=== PATIENT | male | born 1985 | race Caucasian/White ===

== ENCOUNTER → 2021-02-06 16:46 | Outpatient (CLI) | payer OTHER, SELFPAY | PROVIDERS: Visit Provider Nurse Practitioner Family | DX: Z20.822 Contact with and (suspected) exposure to COVID-19 (principal) | CPT/HCPCS: C9803; U0003; U0005 ==

== ENCOUNTER 2024-10-17 22:02 | Emergency (ER) | payer OTHER, SELFPAY ==
[2024-10-17 22:11] VITALS: BP 141/95; PULSE 102; RESP 16; TEMP 36.9; O2SAT 97; BMI 29.0
--- NOTE | 2024-10-17 22:17 | XR_ITS ---
PROCEDURE INFORMATION: Exam: XR Left Elbow Exam date and time: 10/17/2024 10:25 PM Age: 39 years old Clinical indication: Pain; Elbow; Left; Additional info: Olecranon swelling TECHNIQUE: Imaging protocol: Radiologic exam of the left elbow. Views: 3 or more views. COMPARISON: No relevant prior studies available. FINDINGS: Bones/joints: No acute fracture or dislocation. Soft tissues: Soft tissue swelling posteriorly. IMPRESSION: Soft tissue swelling posterior elbow but no underlying acute fracture
[2024-10-17] MEDS: KETOROLAC 30MG/ML VIAL 30 MG IV (22:38)
[2024-10-17 22:52] LABS: Hematocrit 41.0 % (42.0-52.0); Hemoglobin 14.3 g/dL (14.1-18.0); Mean Corpuscular HGB Conc 34.9 g/dL (31.8-35.4); Mean Corpuscular Hemoglobin 30.2 pg (27.0-31.2); Mean Corpuscular Volume 86.5 fl (80-94); Platelet Count 295 K/mm3 (142-424); Red Blood Count 4.74 M/mm3 (4.60-6.20); White Blood Count 11.6 K/mm3 (4.8-10.8)
[2024-10-17 23:02] LABS: Alanine Aminotransferase 22 U/L (12-78); Albumin Level 3.9 g/dl (3.5-5.0); Albumin/Globulin Ratio 0.9 (1.1-1.8); Alkaline Phosphatase 85 U/L (38-126); Anion Gap 12.9 mEq/L (5-15); Aspartate Amino Transferase 27 U/L (17-59); Bilirubin,Total 0.7 mg/dl (0.2-1.3); Blood Urea Nitrogen 12 mg/dl (9-20); Calcium 9.4 mg/dl (8.4-10.2); Carbon Dioxide 26 mmol/L (22.0-30.0); Chloride 102 mmol/L (98-107); Creatinine Clearance Estimated 170 mL/min (50-200); Creatinine,Serum 0.90 mg/dl (0.66-1.25); Estimated Glomerular Filt Rate 93 ml/min (>60); GFR (African American) 113 ML/MIN (>60); Globulin 4.2 g/dL (1.3-3.2); Glucose 145 mg/dl (74-100); Potassium 3.9 mmoL/L (3.5-5.1); Sodium 137 mmol/L (136-145); Total Protein,Serum 8.1 g/dl (6.3-8.2)
[2024-10-17 23:07] LABS: C-Reactive Protein 40.3 mg/L (0-4)
[2024-10-17 23:30] LABS: Poikilocytosis 1+; Tear Drop Cells 1+; Total Cells Counted 100
[2024-10-17 23:32] LABS: Giant Platelets 1+; Polychromasia 1+
[2024-10-18 00:17] LABS: Hepatitis C Ab Qual. W/ RFX REACTIVE (Negative)
--- NOTE | 2024-10-18 00:20 | HMH.EDGENADL ---
Discharge Plan Disposition Patient Disposition: Home, Self-Care Condition: Good Prescriptions Prescriptions: New sulfamethoxazole-trimethoprim [Bactrim] 400-80 mg tablet 2 tab PO BID 7 Days Qty: 28 0RF No Action prednisone 10 MG tablets,dose pack 10 mg PO UD DOSE PK Qty: 42 0RF Rx Instructions: 12 day taper pack azithromycin 250 MG tablet 250 mg PO DIRECTED Qty: 6 0RF Rx Instructions: Take two (2) tablets on day #1, then one (1) tablet day #2 thru #5 Referrals Follow up/Referrals: Nicholas García DO [Staff Physician, Orthopedics] - See instructions Provider,Referral, [Primary Care Provider, Medical] - See instructions Activity Restrictions/Add. Instructions Additional Instructions/Restrictions: I want you to call Dr. García in the morning to schedule a follow up with orthopedics. In the meantime, I want you to take bactrim twice per day for the next 7 days to protect from infection. If you develop any new or worsening symptoms, including persistent fevers, overlying redness, drainage of pus, or difficulty with range of motion of the elbow please promprly return to the ER for further evaluation. Clinical Impressions Clinical Impression: Bursitis, olecranon Qualifiers: Laterality: left Qualified Code(s): M70.22 - Olecranon bursitis, left elbow Instructions Patient Instructions: Bursitis Print Language Print Language: Iranian Discharge ED Provider: Pilo Johnston Adult HPI General Chief complaint: Extremity Injury, Upper Stated complaint: Left elbow swelling Time Seen by Provider: 10/17/24 22:10 Mode of Arrival: Ambulatory Source of Information: Patient Description of Symptoms (Recalled from ER Triage Doc. by RN): Patient has swelling in left elbow that started around one month ago; History of Present Illness HPI narrative: This is a 39-year-old male patient, with past medical history of methamphetamine abuse and prior IV drug use, who is presenting to the emergency department today for evaluation of edema of the left elbow. Patient states that he has developed the symptoms over the last couple of weeks. Earlier this week he used a sterilized needle to puncture the area of swelling over the posterior aspect of the elbow. He states that his symptoms resolved for a few days and then recurred. At that time he had serous colored fluid drained from the bursa posterior to the olecranon. After recurrence he used a needle to again puncture this lesion and he had some bloody output from the bursa. He has not had any difficulty with range of motion of the elbow or. He has not noticed any overlying skin changes. He does state that 3 days ago he had a fever of 102 ?F but he has not had a recurrence of fever since that time Related Data Previous Rx's ?Medication ?Instructions ?Recorded prednisone 10 mg tablets in a dose 10 mg PO UD DOSE PK ##42 10/26/17 pack azithromycin 250 mg tablet 250 mg PO DIRECTED #6 tabs 11/10/18 sulfamethoxazole 400 2 tab PO BID 7 days #28 tabs 10/18/24 mg-trimethoprim 80 mg tablet (Bactrim) Allergies Allergy/AdvReac Type Severity Reaction Status Date / Time No Known Allergies Allergy Verified 10/26/17 14:45 [facility] Disclaimer: The information contained in this section may have been updated after the patient was seen, as this information can be updated by other users. Social History Smoking Status: Current every day smoker alcohol intake: never current occupational status: employed Travel in the last 8 weeks?: None Have you lived/traveled outside [place] in past 30 days?: No Contact w/someone who lives/traveled outside [place] past 30 days?: No Exposure to someone with infectious disease in past 14 days?: No Do you have a fever (greater than 100.4 F or 38 C)?: No Have you tested positive for COVID-19?: No Exposed to someone with COVID-19 in past 14 days?: No Do you have a sore throat?: No Do you have a cough?: No Do you have any weakness?: No Do you have any diarrhea?: No Are you experiencing any unusual bleeding?: No Do you have any muscle aches/pain?: No Do you have any abdominal pain?: No Are you experiencing loss of taste or smell?: No ROS Obtained: Yes Systems reviewed as appropriate & no additional complaints except as documented Physical Exam General General appearance: alert and in no apparent distress Head Head exam: atraumatic and normocephalic Eye Eye exam: Present PERRL and EOMI ENT ENT exam: Present normal oropharynx and mucous membranes moist Neck Neck exam: Present full ROM and trachea midline Respiratory Respiratory exam: Present normal lung sounds bilaterally; Absent respiratory distress Cardiovascular Cardiovascular exam: Present regular rate and normal rhythm Abdominal Exam Abdominal exam: Present soft; Absent tenderness Extremities Exam Extremities exam: Present normal inspection and other (Enlarged olecranon bursa over the left elbow with no overlying skin changes); Absent tenderness Back Exam Back exam: Absent vertebral tenderness Neurological Exam Neurological exam: Present alert and oriented X3 Skin Skin exam: Present warm and dry Medical Decision Making Medical Records Medical records reviewed: Yes I reviewed the patient's medical records. Screening: Per USPSTF and CDC recommendations, given the prevalence of disease in our region, it is our hospital?s policy to screen for HIV and viral Hepatitis for all patients aged 18 and over and those with ongoing risk factors. Sergio Inquiry Pt receiving controlled substance: No Sergio was queried for this patient: No Vital Signs: 10/17/24 22:11 10/18/24 00:36 Temperature 98.4 F 97.9 F Temperature Source Oral Oral Pulse Rate 89 Pulse Rate [Right Radial] 102 H Respiratory Rate 16 16 Blood Pressure 133/83 Blood Pressure [Right Arm] 141/95 H Blood Pressure Mean [Right Arm] 110 Blood Pressure Source Automatic Cuff Blood Pressure Source [Right Arm] Automatic Cuff Blood Pressure Position Supine Blood Pressure Position [Right Arm] Supine 02 Sat by Pulse Oximetry 97 Oxygen Delivery Method Room Air Room Air Lab Data Lab Results 10/17/24 22:38: WBC 11.6 H, RBC 4.74, Hgb 14.3, Hct 41.0 L, MCV 86.5, MCH 30.2, MCHC 34.9, RDW 12.2, Plt Count 295, MPV 9.2, Neut % (Auto) 57.1, Lymph % (Auto) 26.7, [place] % (Auto) 9.0, Eos % (Auto) 1.8, Baso % (Auto) 0.9, Neut # (Auto) 6.6, Lymph # (Auto) 3.1, [place] # (Auto) 1.0, Eos # (Auto) 0.2, Baso # (Auto) 0.1, Total Counted 100, Neutrophils % (Manual) 69, Band Neutrophils % 1.0, Lymphocytes % (Manual) 16, Monocytes % (Manual) 8, Eosinophils % (Manual) 2, Metamyelocytes % 1.0, Myelocytes % 2 H, Promyelocytes % 1, Platelet Estimate Normal, Giant Platelets 1+, Polychromasia 1+, Poikilocytosis 1+, Tear Drop Cells 1+, ESR 49 H, Sodium 137, Potassium 3.9, Chloride 102, Carbon Dioxide 26, Anion Gap 12.9, BUN 12, Creatinine 0.90, Estimated Creat Clear 170, Estimated GFR 93, Est GFR ( Amer) 113, Glucose 145 H, Calcium 9.4, Total Bilirubin 0.7, AST 27, ALT 22, Alkaline Phosphatase 85, C-Reactive Protein 40.3 H, Total Protein 8.1, Albumin 3.9, Globulin 4.2 H, Albumin/Globulin Ratio 0.9 L, HCV Ab NICK w/Rflx PCR Qn Reactive, HIV Ag/Ab Combo Qual Negative 10/17/24 22:38 10/17/24 22:38 Orders (Tests/Meds): ED MEDICATIONS Generic Name Dose Route Start Last Admin Trade Name Freq PRN Reason Stop Dose Admin Trimethoprim/Sulfamethoxazole 1 each 10/18/24 00:36 Sulfa/Trimethoprim 1 Tablet PO 10/18/24 00:37 ONCE ONE Discontinued Medications Generic Name Dose Route Start Last Admin Trade Name Freq PRN Reason Stop Dose Admin Ketorolac Tromethamine 30 mg 10/17/24 22:18 10/17/24 22:38 Ketorolac 30mg/Ml Vial IV 10/17/24 22:19 30 mg ONCE ONE Administration ORDERS Category Date Time Status Elbow XR left mininum 3 views [XR elbow LT min 3V] Stat Exams 10/17/24 22:17 Completed CBC Man Diff [Complete Blood Count Man Dif] Stat Lab 10/17/24 22:38 Completed CMP [Comprehensive Metabolic Panel] Stat Lab 10/17/24 22:38 Completed CRP [C-Reactive Protein] Stat Lab 10/17/24 22:38 Completed ESR [Erythrocyte Sedimentation Rate] Stat Lab 10/17/24 22:38 Completed HCV RNA PCR, Quant Stat Lab 10/17/24 22:38 Received HIV Combo Stat Lab 10/17/24 22:38 Completed Hepatitis C Ab Qual. W/ RFX Stat Lab 10/17/24 22:38 Completed Blood Culture Stat Micro 10/17/24 23:25 Received Medical Decision Narrative: In summary this is a 39-year-old male patient who is presenting to the emergency department today for evaluation of symptoms consistent with olecranon bursitis. Patient's comorbidities include remote IV drug use as well as current methamphetamine use (smokes) which places him at high risk for morbidity. On initial evaluation of the patient they were resting comfortably in no acute distress and nontoxic in appearance. They are hemodynamically stable, saturating well room air, and are neurologically intact. On physical examination the olecranon bursa does appear to be enlarged and fluctuant consistent with bursitis. There is no overlying skin changes such as erythema, ulceration, skin breakdown, or active purulence. The bursa is not particularly tender. He has full range of motion of the elbow passive and active without pain or difficulty. Differential diagnosis includes olecranon bursitis, septic bursitis, among others. I have a low suspicion for septic arthritis given that he has full range of motion of the joint. Due to the fact that the patient has had fevers a couple of days ago, has a history of former IV drug use, and punctured the bursa with a needle several times this week I do feel that we should obtain blood cultures to ensure that he is not bacteremic. Workup was initiated with hematologic labs as well as an x-ray of the left elbow. X-ray was personally interpreted by me and demonstrates no acute fracture or dislocation. Official radiology read is in agreement states that there is swelling over the olecranon which is consistent with my examination findings of olecranon bursitis. Labs were personally interpreted by me and demonstrate a mild leukocytosis of 11.6 with a CRP that is mildly elevated at 40. Due to the fact that he is not experiencing any overlying skin change or tenderness I do not think that this is necessarily active bursitis that necessitates aspiration and fluid studies. However, due to the fact that he had fevers a couple of days ago and has mild elevation of his inflammatory markers I do feel it is reasonable to treat him with antibiotics. We will place the patient on Bactrim for the next 7 days and have him follow-up in orthopedics with Dr. García. Patient knowledges understanding of this plan. At this time all questions have been answered and all parties are agreeable with the decision of discharge home Critical Care Critical Care Time Critical Care Time: No
[2024-10-18 00:36] VITALS: BP 133/83; PULSE 89; RESP 16; TEMP 36.6; O2SAT 98
[2024-10-18] MEDS: SULFA/TRIMETHOPRIM 1 TABLET 1 EACH PO (00:41)
== END 2024-10-18 00:43 | disposition home or self-care (01) ==
PROVIDERS: Emergency Provider Student in an Organized Health Care Education/Training Program
DX: M70.22 Olecranon bursitis, left elbow (principal); R22.32 Localized swelling, mass and lump, left upper limb; F17.210 Nicotine dependence, cigarettes, uncomplicated
CPT/HCPCS: 73080; 80053; 85007; 85014; 85018; 85048; 85049; 85651; 86140; 86803; 87040; 87389; 87522; 96374; 99284; J1885